=== PATIENT | female | born 1965 | race Caucasian/White ===

== ENCOUNTER 2023-01-04 19:28 | Emergency (ER) | payer OTHER ==
[~2023-01-04] VITALS: Ht 167.6 cm; Wt 76.9 kg
[2023-01-04] MEDS ORDERED: ceFAZolin SOD 1 GM in D5W MINI-BAG PLUS 50 ML IV ONE (20:50)
[2023-01-04] MEDS ORDERED: LIDOCAINE 2% MDV 20ML VIAL SC ONE (20:50)
[2023-01-04] MEDS ORDERED: traMADol 50 MG TAB PO ONE (20:50)
[2023-01-04] MEDS ORDERED: TETANUS/DIPHTHERIA TOX ADSORB ADULT 0.5ML SYR/VIAL IM ONE (20:50)
[2023-01-04] MEDS ORDERED: CEPH500C PO (21:46)
[2023-01-04 22:12] VITALS: BP 152/73
== END 2023-01-04 22:18 | disposition home or self-care (01) ==
LOC: M ED 19:28
DX: S61.311A Laceration without foreign body of left index finger with damage to nail, initial encounter (principal); W27.8XXA Contact with other nonpowered hand tool, initial encounter; Y92.009 Unspecified place in unspecified non-institutional (private) residence as the place of occurrence of the external cause; Y93.H9 Activity, other involving exterior property and land maintenance, building and construction; Y99.8 Other external cause status
CPT/HCPCS: 12001; 73140; 90714; 96365; 99284; J0690